=== PATIENT | female | born 1945 | race Caucasian/White ===

== ENCOUNTER 2016-10-25 16:28 | Emergency (ER) | payer MEDICARE, OTHER ==
[~2016-10-25] VITALS: Ht 157.5 cm; Wt 63.6 kg
[~2016-10-25 16:28] MED LIST: ALPR0.254 PO; CHOL400T3 PO; FAMC500T18 PO; FURO40TA4 PO; GABAPENTIN PO; MULT-1018 PO; OMEP20CA11 PO; POLY17PO6 PO; POTA20TA35 PO; SERT50TA9 PO
[2016-10-25 16:35] VITALS: BP 156/95; PULSE 98; RESP 16; O2SAT 97
--- NOTE | 2016-10-25 16:52 | ED.REPORT ---
HPI-Chest Pain 40 and Over Date of Service October 25, 2016 ED Provider: Dr. Wilks Pt is a 71 y/o female w/ a hx of hypertension presenting to the ED c/o cough and congestion onset yesterday. She has been short of breath with activity for a few months. She c/o associated generalized weakness, vomiting after coughing, nausea, intermittent left-sided rib pain, non-bloody diarrhea. Pt denies dysuria , urinary frequency. She attributes her rib pain to leaning over a freezer to get something yesterday. She states her right ankle is always slightly edematous and there is no change today. The patient had a nuclear med stress test on 10/14/16 which was normal with an EF of 60-65%. The patient was sent here from Urgent Care because she mentioned she had chest pain. Nursing Notes Stated Complaint: CHEST PAIN, SHORTNESS OF BREATH/FROM U.C Chief Complaint: Chest Pain Nursing Notes Reviewed: Yes Allergies: Coded Allergies: No Known Drug Allergies (Verified Allergy, Unknown, 09/24/15) Scheduled ([Gabapentin]) 60 MG PO HS Cholecalciferol (Vitamin D3) (Vitamin D3) 400 Unit Tab.chew 400 UNIT PO DAILY Famciclovir (Famciclovir) 500 Mg Tablet 1,000 MG PO BID Furosemide (Furosemide) 40 Mg Tablet 40 MG PO DAILY Multivitamin (Multi Vitamin Daily) 1 Each Tablet 1 EACH PO DAILY Omeprazole (Omeprazole) 20 Mg Capsule.dr 20 MG PO DAILY POTASSIUM CHL-Expunged Drug, Do Not Renew! (P-WGO-Zajbbdzi Drug, Do Not Renew!) 20 Meq Tab.er.prt 20 MEQ PO BID Sertraline HCl (Sertraline) 50 Mg Tablet 50 MG PO DAILY Scheduled PRN Alprazolam (Alprazolam) 0.25 Mg Tablet 0.25 MG PO PRN PRN PRN For Anxiety Miscellaneous Medications Polyethylene Glycol 3350 (Miralax) 17 Gm Powd.pack 17 GM PO General Time Seen by MD: 16:52 Chief Complaint Other (cough) Hx Obtained From: Patient Arrived By: Walk-in Sudden in Onset?: No Onset Occurred: 9 - 12 hours ago Symptom Duration: Since onset Location: : Chest left Quality: Painful, Sharp Severity: Current: Mild Severity: Maximum: Moderate Past Medical History Past Medical History Hypertension Peripheral edema Headaches Hx patellar fracture Anxiety Past Surgical History Cholecystectomy Smoking History Never Smoker Social History Alcohol Use: "Social" Drug Use: Denies drug use Ambulatory Status Independent Review of Systems Constitutional: Reports: Fatigue Respiratory: Reports: Dyspnea on exertion, Non-productive cough, Shortness of breath Cardiovascular: Reports: Chest pain GI: Denies: Abdominal pain Complete sys rev & neg: except as marked. Ears / Nose / Throat: Reports: Nasal congestion Female: Denies: Dysuria, Urinary frequency Physical Exam Initial Vital Signs Vital Signs (First) Date Time Temp Pulse Resp B/P Pulse Ox O2 Delivery O2 Flow Rate FiO2 10/25/16 16:35 36.7 98 16 156/95 97 Room Air Initial VS: Reviewed, Vital signs normal Head / Eyes: Atraumatic, Normocephalic, PERRL ENT: Mucous membranes moist, Conjunctiva normal, No scleral icterus Neck: Supple, Full range of motion Skin: Warm, Dry, No cyanosis Neurologic: Alert, Oriented, Nonfocal Psychiatric: Mood/affect normal, Behavior normal, Normal thought content General/Constitutional: Awake, Alert, No acute distress, Well appearing, Cooperative, Not toxic appearing Respiratory / Chest: Breath sounds NL, Breath sounds = bilat, No respiratory distress, No rales, No rhonchi, No wheezing, No retractions, No stridor Cardiovascular: Heart rate NL, Regular rhythm, Heart sounds NL, No gallop, No murmurs, No rubs, Cap refill not delayed, Peripheral circulation NL Trace RLE edema Abdomen: Soft, Non-tender Interpretation & Diagnostics Lab Results Interpretation Result Diagram: 10/25/16 1656 10/25/16 1656 Test 10/25/16 16:56 White Blood Count 11.6th/mm3 (3.8-10.1) Red Blood Count 4.89mil/mm3 (3.90-5.20) Hemoglobin 15.1g/dL (12.0-15.6) Hematocrit 44.0% (35.0-46.0) Mean Corpuscular Volume 90.0fL (81-100) Mean Corpuscular Hemoglobin 30.9pg (27.0-35.0) Mean Corpuscular Hemoglobin Concent 34.3% (32.0-37.0) Red Cell Distribution Width 13.8% (12.3-15.4) Platelet Count 314bil/L (150-400) Neutrophils (%) (Auto) 72.2% (40-74) Lymphocytes (%) (Auto) 17.3% (14-46) Monocytes (%) (Auto) 8.6% (4-12) Eosinophils (%) (Auto) 0.9% (0-5) Basophils (%) (Auto) 0.7% (0-3) D-Dimer < 0.50mg/L FEU (<0.50) Sodium Level 139mEq/L (134-144) Potassium Level 3.7mEq/L (3.5-5.2) Chloride Level 96mEq/L (97-108) Carbon Dioxide Level 19mmol/L (18-29) Blood Urea Nitrogen 34mg/dL (8-27) Creatinine 1.28mg/dL (0.57-1.00) Estimat Glomerular Filtration Rate 59mL/min (>59) Glucose Level 118mg/dL (60-99) Calcium Level 10.5mg/dL (8.5-10.1) Magnesium Level 1.8mg/dL (1.6-2.6) Total Bilirubin 0.5mg/dL (0.0-1.2) Aspartate Amino Transf (AST/SGOT) 38U/L (0-50) Alanine Aminotransferase (ALT/SGPT) 36U/L (0-32) Alkaline Phosphatase 106U/L (25-165) Troponin T < 0.010ug/L (0.0-0.011) Total Protein 8.2g/dL (6.4-8.4) Albumin 5.4g/dL (3.4-5.0) Hold Ying Top Tube Received (Received) ECG Interpretation ECG Interpretation: Sinus rhythm rate 96 LBBB Similar to previous with small difference in QRS in V5 and V6 Time: 16:56 Interpreted by: ED physician X-Ray Chest Interpretation Chest Xray Interpretation: IMPRESSION: Acute disease is not seen an upright portable chest. Cause of chest pain is not identified. Dictated by: Kulwant Stevenson M.D. on 10/25/2016 at 17:16 Approved by: Kulwant Stevenson M.D. on 10/25/2016 at 17:17 View: Portable, 1 view Interpretation / Wet Read by: Interpret - Radiologist Re-Eval/Medical Decision Med Decision/Clinical Course Overall the constellation of symptoms sounds like an upper respiratory infection that is only present for 1-2 days, there is no obvious pneumonia labs are reassuring for other secondary causes. Patient is feeling better. She may be mildly dehydrated based on a small increase in her creatinine. Overall she is stable for discharge. Robitussin with codeine prescribed. Return and follow-up precautions given. Counseled Regarding: Diagnosis, Lab results, Need for follow-up, When/why to return to ED Discharge & Departure Primary Impression: URI (upper respiratory infection) Disposition: Home Discharge Condition All VS Reviewed: Yes Condition: Stable Patient Instructions: Upper Respiratory Infection (ED) Additional Instructions: Your lab tests and x-ray are reassuring. You likely have a viral upper respiratory infection. Use Robitussin with codeine for cough. Call your regular doctor in the morning for close follow-up. Return to the ER for any concerning or worsening symptoms. Referrals: Phu Serrano MD (PCP) 2-3 days Scribe Attestation Portions of this note were transcribed by Dimitri Mcbride. I, Dr. Wilks personally performed the history, physical exam and medical decision-making; I reviewed and confirmed the accuracy of the information in the transcribed note. Signed by Dallas Ramos, 10/25/16 - 1700 copies to: Phu Serrano MD, Timothy S DO October 25, 2016 16:52 DIMITRI MCBRIDE October 25, 2016 16:57
[2016-10-25 17:05] LABS: BASOPHILS % (AUTO) 0.7 % (0-3); EOSINOPHILS % (AUTO) 0.9 % (0-5); MONOCYTES % (AUTO) 8.6 % (4-12); Mean Corpuscular Hemoglobin 30.9 pg (27.0-35.0); NEUTROPHILS % (AUTO) 72.2 % (40-74); Platelet Count 314 bil/L (150-400)
[2016-10-25] MEDS ORDERED: Codeine-guaiFENesin 10 mL Syrup PO ONE (17:10)
[2016-10-25] MEDS ORDERED: 0.9% Sodium Chloride 500 ML IV ONE (17:10)
--- NOTE | 2016-10-25 17:24 | DRSVH ---
PROCEDURE: X-RAY CHEST ONE VIEW, PORTABLE ([id number]) INDICATIONS: chest pain TECHNIQUE: One view of the chest was acquired. COMPARISON: None. FINDINGS: Surgical changes and devices: patient care specialist leads are seen over the chest. Vascular clips in the ri ght upper quadrant of the abdomen suggest previous cholecystectomy. Lungs and pleura: No pleural effusions or pneumothorax. Lungs are clear. Mediastinum: Mediastinal contours appear normal. Heart size is normal. Bones and chest wall: No suspicious bony lesions. Overlying soft tissues appear unremarkable. IMPRESSION: Acute disease is not seen an upright portable chest. Cause of chest pain is not identifie d. Dictated by: Kulwant Stevenson M.D. on 10/25/2016 at 17:16 Approved by: Kulwant Stevenson M.D. on 10/25/2016 at 17:17
[2016-10-25 17:34] LABS: TROPONIN T < 0.010 ug/L (0.0-0.011)
[2016-10-25 17:43] LABS: Magnesium 1.8 mg/dL (1.6-2.6)
[2016-10-25] MEDS ORDERED: GUAI10LI PO (18:16)
[2016-10-25 18:25] VITALS: BP 144/70; PULSE 77; RESP 20; O2SAT 99
== END 2016-10-25 18:28 | disposition home or self-care (01) ==
LOC: SED 16:28
DX: J06.9 Acute upper respiratory infection, unspecified (principal); I10 Essential (primary) hypertension; Z79.899 Other long term (current) drug therapy
CPT/HCPCS: 36415; 71010; 80053; 83735; 84484; 85025; 85378; 93005; 96360; 99285; J7040